=== PATIENT | female | born 1985 | race American Indian/Alaskan Native ===

== ENCOUNTER 2016-10-09 13:09 | Emergency (ER) | payer OTHER ==
[2016-10-09] MEDS ORDERED: TYLENOL ONE (18:14)
[2016-10-09] MEDS ORDERED: TYLENOL PO ONE (18:36)
--- NOTE | 2016-10-09 21:51 | Emergency Department Report ---
HPI - General Chief Complaint: Skin Rash Time Seen by Provider: 10/09/16 21:50 - HPI HPI: Patient is a 30-year-old female with a history of hidradenitis who presents to ED complaining of vaginal and inguinal pain. Patient states the symptoms number than is getting progressively worse. Patient states she is to see a sales service professional the last time she saw her sales service professional was last year. Patient states her menstrual cycle was about 2 weeks ago. Patient denies fevers/chills/nausea/vomiting/abdominal pain chest pain/ shortness of breath/vaginal bleeding/vaginal discharge ED Past Medical Hx - Past Medical History Additional medical history: Hydradenitis suppurativa - Surgical History Past Surgical History?: No - Social History Smoking Status: Never Smoker - Medications Home Medications: Home Medications Medication Instructions Recorded Confirmed Last Taken Type Promethazine [Phenergan] 25 mg PO Q6H PRN #14 tablet 06/25/14 Unknown Rx HYDROcodone/APAP 5-325 [Cranbury 1 each PO Q6HR PRN #20 tablet 10/09/16 Unknown Rx 5-325 mg TAB] Ibuprofen [Motrin] 800 mg PO Q8HR PRN #40 tablet 10/09/16 Unknown Rx Prednisone [predniSONE 10 mg 10 mg PO .TAPER #1 tab.ds.pk 10/09/16 Unknown Rx (6-Day Pack, 21 Tabs)] Sulfamethoxazole/Trimethoprim 1 each PO BID 10 Days 10/09/16 Unknown Rx [Bactrim DS TAB] ED Review of Systems ROS: Stated complaint: SEVERE HIDRADENITIS Other details as noted in HPI Physical Exam - Physical Exam Vital Signs: Vital Signs 10/09/16 16:01 Temperature 98.6 F Pulse Rate 99 H Respiratory 18 Rate Blood Pressure 120/81 O2 Sat by Pulse 100 Oximetry Physical Exam: GENERAL: Alert and oriented x3, no apparent distress, Normal Gait, atraumatic. HEAD: Head is normocephalic and a-traumatic. EYES: Extra ocular muscles are intact. Pupils are equal, round, and reactive to light and accommodation. EARS: symetrical, atraumatic, non tender, ear canal clear and moderate cerumen, tympanic membrance non inflamed. gross auditory nml bilaterally. NOSE: Nose symetrical, Nontender,Nares appeared normal. MOUTH:Mouth is well hydrated and without lesions. Tonsils nonerythematous or swollen, Uvula midline, Tongue not elevated. Mucous membranes are moist. Posterior pharynx clear, no exudate or lesions. Patent airways. NECK: Supple. Non edematous, No carotid bruits. No lymphadenopathy or thyromegaly. LUNGS: Symetrical with respiration, No wheezing, no rales or crackles, CTAB. HEART: S1, S2 present, regular rate and rhythm without murmur, no rubs, no gallops. ABDOMEN: No organomegaly was noted,Positive bowel sounds, soft, and non- distended. . Nontender to palpation on all Quadrants, NO CVA tenderness. EXTREMITIES/MUSCULOSKELETAL: No cyanosis, clubbing, rash, lesions or edema. Full ROM bilaterally. UE/LE Pulses 2+ bilaterally. NEUROLOGIC: No focal Deficit, Cranial nerves II through XII are grossly intact. No loss of sensation, PSYCHIATRIC: Mood is congruent with affect, denies suicidal or homicidal ideations. SKIN: Warm and dry, multiple lesions seen in groin vaginal and perianal areas. Lesions are draining of different stages of pus like discharge. With mild blood. Ropelike raised lesions of different stages. Severely tender to palpation. ED Course Vital Signs 10/09/16 16:01 Temperature 98.6 F Pulse Rate 99 H Respiratory 18 Rate Blood Pressure 120/81 O2 Sat by Pulse 100 Oximetry ED Medical Decision Making - Lab Data Result diagrams: 10/09/16 22:13 - Medical Decision Making 28-year-old female presents with severe hydradenitis of the genital area. ED course: Patient received some prednisone. Medication. Discussed with patient and she will follow-up with her sales service professional or pick from the referral was given. Discussed sales service professional referred to a specialist if she isn't sure surgical candidate. Discussed patient medications to be discharged with antibiotics, prednisone and some peripheral pain. Patient is alert and oriented 3 Patient's prior signs stable. Patient is in mild distress over pain but is in no respiratory or acute distress. Critical care attestation.: If time is entered above; I have spent that time in minutes in the direct care of this critically ill patient, excluding procedure time. ED Disposition Clinical Impression: Hidradenitis suppurativa, Vulval hidradenitis suppurativa Disposition: DISCHARGED TO HOME OR SELFCARE Is pt being admited?: No Does the pt Need Aspirin: No Condition: Stable Instructions: Adenitis (ED), Heat Pack Application (ED) Prescriptions: HYDROcodone/APAP 5-325 [Cranbury 5-325 mg TAB] 1 each PO Q6HR PRN #20 tablet PRN Reason: Pain Ibuprofen [Motrin] 800 mg PO Q8HR PRN #40 tablet PRN Reason: Pain Prednisone [predniSONE 10 mg (6-Day Pack, 21 Tabs)] 10 mg PO .TAPER #1 tab.ds.pk Sulfamethoxazole/Trimethoprim [Bactrim DS TAB] 1 each PO BID 10 Days Referrals: PRIMARY CAREMD [Primary Care Provider] - 3-5 Days CLIF RUST MD [Staff Physician] - 3-5 Days [facility] [Outside] - 3-5 Days [facility] [Outside] - 3-5 Days MONIQUE TODD MD [Referring] - 3-5 Days RICHY SIMENTAL MD [Referring] - 3-5 Days BENEDICTO GIANG MD [Staff Physician] - 3-5 Days LIS MILES MD [Staff Physician] - 3-5 Days MOON DUNHAM MD [Referring] - 3-5 Days SHIRA MICHAUD MD [Staff Physician] - 3-5 Days Forms: Work/School Release Form(ED) Time of Disposition: 22:27
[2016-10-09 22:36] LABS: Basophils % (Auto) 0.4 % (0.0-1.8); Eosinophils % (Auto) 2.3 % (0.0-4.3); Hematocrit 33.2 % (30.3-42.9); Hemoglobin 10.6 gm/dl (10.1-14.3); Mean Corpuscular HGB Conc 32 % (30-34); Mean Corpuscular Hemoglobin 27 pg (28-32); Mean Corpuscular Volume 83 fl (79-97); Platelet Count 349 K/mm3 (140-440); Red Blood Count 4.01 M/mm3 (3.65-5.03); Red Cell Distribution Width 15.2 % (13.2-15.2); White Blood Count 7.9 K/mm3 (4.5-11.0)
[2016-10-09] MEDS ORDERED: MOTRIN PO ONE (22:48)
[2016-10-09 23:30] VITALS: BP 118/81
== END 2016-10-09 23:28 | disposition home or self-care (01) ==
LOC: ED 13:09
DX: L73.2 Hidradenitis suppurativa (principal)
CPT/HCPCS: 36415; 84703; 85025; 96372; 99283; J2930